=== PATIENT | female | born 1965 ===

== ENCOUNTER 2018-10-18 12:21 | Outpatient (CLI) | payer MEDICARE ==
[2018-10-18 13:15] LABS: Hemoglobin 14.6 gm/dl (10.1-14.3); Mean Corpuscular HGB Conc 35 % (30-34); Mean Corpuscular Volume 82 fl (79-97); Platelet Count 321 K/mm3 (140-440); Red Blood Count 5.13 M/mm3 (3.65-5.03); Red Cell Distribution Width 13.3 % (13.2-15.2)
[2018-10-18 13:23] LABS: Bacteria,Urine 1+ /HPF (Negative); Bilirubin,Urine NEG (Negative); Blood,Urine NEG (Negative); Color,Urine Yellow (Yellow); Mucus,Urine FEW /HPF; Protein,Urine <15 mg/dL mg/dL (Negative); Urobilinogen,Urine < 2.0 mg/dL (<2.0); WBC,Urine < 1.0 /HPF (0.0-6.0)
[2018-10-18 13:26] LABS: Alanine Aminotransferase 38 units/L (7-56); Albumin 4.6 g/dL (3.9-5); BUN/Creatinine Ratio 14; Blood Urea Nitrogen 7 mg/dL (7-17); Calcium 9.7 mg/dL (8.4-10.2); Chol/HDL Ratio 6.21 %; HDL Cholesterol 37 mg/dL (40-59); Hemolysis Index 14; LDL Cholesterol,Direct 187 mg/dL (50-130)
[2018-10-18 13:44] LABS: Creatinine,Urine 108.3 mg/dL (0.1-20.0); Protein/Creatinine Ratio,Urine 0.15
== END 2018-10-18 12:22 | disposition home or self-care (01) ==
LOC: LAB 12:21
PROVIDERS: ATTEND Internal Medicine
DX: E11.22 Type 2 diabetes mellitus with diabetic chronic kidney disease (principal); E78.5 Hyperlipidemia, unspecified; E11.9 Type 2 diabetes mellitus without complications; E87.6 Hypokalemia; N18.9 Chronic kidney disease, unspecified
CPT/HCPCS: 36415; 80053; 80061; 81001; 82306; 82570; 82607; 83036; 83735; 84156; 84443; 85027

== ENCOUNTER 2019-01-02 11:16 | Outpatient (CLI) | payer MEDICARE ==
[2019-01-02 12:13] LABS: Bilirubin,Urine NEG (Negative); Blood,Urine SM (Negative); Color,Urine Yellow (Yellow); Mucus,Urine FEW /HPF; Protein,Urine <15 mg/dL mg/dL (Negative); Urobilinogen,Urine < 2.0 mg/dL (<2.0)
== END 2019-01-02 11:17 | disposition home or self-care (01) ==
LOC: LAB 11:16
PROVIDERS: ATTEND Internal Medicine
DX: N39.0 Urinary tract infection, site not specified (principal)
CPT/HCPCS: 81001; 87076; 87086; 87186; 87591

== ENCOUNTER 2019-01-27 09:14 | Outpatient (CLI) | payer MEDICARE ==
[2019-01-27 10:40] LABS: Hematocrit 44.3 % (30.3-42.9); Hemoglobin 15.2 gm/dl (10.1-14.3); Mean Corpuscular HGB Conc 34 % (30-34); Mean Corpuscular Volume 85 fl (79-97); Platelet Count 338 K/mm3 (140-440); Red Blood Count 5.25 M/mm3 (3.65-5.03); Red Cell Distribution Width 13.9 % (13.2-15.2)
[2019-01-27 10:45] LABS: Bacteria,Urine 1+ /HPF (Negative); Bilirubin,Urine NEG (Negative); Blood,Urine NEG (Negative); Color,Urine Yellow (Yellow); Mucus,Urine FEW /HPF; Protein,Urine <15 mg/dL mg/dL (Negative); Urobilinogen,Urine < 2.0 mg/dL (<2.0)
[2019-01-27 11:06] LABS: BUN/Creatinine Ratio 16; Blood Urea Nitrogen 11 mg/dL (7-17); Calcium 9.7 mg/dL (8.4-10.2); Hemolysis Index 5
[2019-01-27 11:13] LABS: Chol/HDL Ratio 5.08 %
[2019-01-27 11:47] LABS: Creatinine,Urine 146.1 mg/dL (0.1-20.0); Protein/Creatinine Ratio,Urine 0.09
[2019-01-31 13:27] LABS: Vitamin D, 25-OH, D2 <4 ng/mL
== END 2019-01-27 09:15 | disposition home or self-care (01) ==
LOC: LAB 09:14
PROVIDERS: ATTEND Internal Medicine
DX: Z13.21 Encounter for screening for nutritional disorder (principal); E11.65 Type 2 diabetes mellitus with hyperglycemia; E78.5 Hyperlipidemia, unspecified; E11.22 Type 2 diabetes mellitus with diabetic chronic kidney disease; E87.6 Hypokalemia; N18.3 Chronic kidney disease, stage 3 (moderate); R82.998 Other abnormal findings in urine
CPT/HCPCS: 36415; 80048; 80061; 81001; 82306; 82570; 83036; 83735; 84156; 85027; 87086

== ENCOUNTER 2019-09-03 12:51 | Outpatient (CLI) | payer MEDICARE ==
[2019-09-03 13:08] LABS: Bacteria,Urine 1+ /HPF (Negative); Bilirubin,Urine NEG (Negative); Blood,Urine SM (Negative); Color,Urine Yellow (Yellow); Mucus,Urine FEW /HPF; Protein,Urine <15 mg/dL mg/dL (Negative); Urobilinogen,Urine < 2.0 mg/dL (<2.0)
== END 2019-09-03 12:52 | disposition home or self-care (01) ==
LOC: LAB 12:51
PROVIDERS: ATTEND Internal Medicine
DX: N39.0 Urinary tract infection, site not specified (principal); L29.0 Pruritus ani; Z86.19 Personal history of other infectious and parasitic diseases
CPT/HCPCS: 81001; 85007; 87086; 87177

== ENCOUNTER 2019-10-22 09:30 | Outpatient (CLI) | payer MEDICARE ==
--- NOTE | 2019-10-22 10:33 | Ultrasound Report ---
ULTRASOUND RENAL INDICATION: R31.9 HEMATURIA UNSPECIFIED. COMPARISON: No relevant prior imaging study available. FINDINGS: RIGHT KIDNEY: Size: 10.9 x 5.1 cm. Echogenicity: Normal. Cortical thickness: Normal, 1.6 cm. Hydronephrosis: None. Cyst or mass: None. Stones: None. LEFT KIDNEY: Size: 12.1 x 4.9 cm. Echogenicity: Normal. Cortical thickness: Normal, 1.9 cm. Hydronephrosis: None. Cyst or mass: None. Stones: None. Urinary Bladder: No significant abnormality. Free Fluid: None. Additional Findings: Hepatic steatosis is noted. IMPRESSION 1. No acute sonographic abnormality of the kidneys. 2. Hepatic steatosis. Signer Name: Ketan Bull MD Signed: 10/22/2019 10:29 AM Workstation Name: [id number]
== END 2019-10-22 09:31 | disposition home or self-care (01) ==
LOC: US 09:30
PROVIDERS: ATTEND Internal Medicine
DX: K76.0 Fatty (change of) liver, not elsewhere classified (principal); R31.9 Hematuria, unspecified
CPT/HCPCS: 76770

== ENCOUNTER 2019-11-13 08:50 | Outpatient (CLI) | payer MEDICARE ==
[2019-11-13 09:45] LABS: Chol/HDL Ratio 4.79 %
[2019-11-13 10:53] LABS: Creatinine,Urine 290.6 mg/dL (0.1-20.0); Microalbumin/Creatinine Ratio 4.4 ug/mg
== END 2019-11-13 08:51 | disposition home or self-care (01) ==
LOC: LAB 08:50
PROVIDERS: ATTEND Internal Medicine
DX: E11.9 Type 2 diabetes mellitus without complications (principal); E78.5 Hyperlipidemia, unspecified
CPT/HCPCS: 36415; 80061; 82043; 83036

== ENCOUNTER 2020-04-16 07:01 | Day surgery (SDC) | payer MEDICARE ==
[2020-04-16] MEDS ORDERED: SODIUM CHLORIDE 0.9% 1000 ML 1,000 ML IV SCH (07:30)
--- NOTE | 2020-04-16 07:58 | Anesthesia Consultation ---
Anesthesia Consult and Med Hx Date of service: 04/16/20 - Airway Anesthetic Teeth Evaluation: Good, Bridges (permanent front upper) ROM Head & Neck: Adequate Mental/Hyoid Distance: Adequate Mallampati Class: Class I Intubation Access Assessment: Probably Good - Pre-Operative Health Status ASA Pre-Surgery Classification: ASA2 Proposed Anesthetic Plan: MAC - Cardiovascular System Hx Hypertension: Yes - Gastrointestinal Hx Gastroesophageal Reflux Disease: Yes - Endocrine Hx Non-Insulin Dependent Diabetes: Yes
--- NOTE | 2020-04-16 07:58 | Anesthesia Day of Surgery ---
Anesthesia Day of Surgery - Day of Surgery Patient Examined: Yes Patient H&P Reviewed: Yes Patient is NPO: Yes
[2020-04-16] MEDS ORDERED: WATER FOR IRRIG STERILE 250 ML BOTTLE IR ONE (09:05)
[2020-04-16] MEDS ORDERED: WATER FOR IRRIG STERILE 1,000 ML BOTTLE ONE (09:05)
[2020-04-16] MEDS ORDERED: propofoL 200 MG/20 ML VIAL IV ONE ×2 (09:07)
--- NOTE | 2020-04-16 09:47 | Procedure Note ---
Date of procedure: 04/16/20 Pre-op diagnosis: GERD/ Colon Polyp Screening Post-op diagnosis: other (Mild,Rose Marie Esophagitis/ Gastritis/ Mild to Moderate, Distal Erosive Esophagitis/ Mild Gastroparesis/ Possible,Ileocecal Lipoma/Mild to Moderate Diverticular Disease/Minor,Internal Hemorrhoid) Procedure: EGD with Biopsy/ Colonoscopy with Biopsy Anest[place]: [facility] [place] [facility] [place]geon: [place] SWEENEY Estimated blood loss: minimal Pathology: list Specimen disposition: to lab Condition: stable Disposition: same day (Avoid aspirin and NSAID and anticoagulants for 5 days; otherwise resume home medication. Treat with PPI,Fluconazole and encourage fiber intake and follow up in 1 to 2 weeks ([phone]).)
--- NOTE | 2020-04-16 10:33 | Operative Report ---
PROCEDURE: Esophagogastroduodenoscopy with biopsy. INDICATIONS: This is a 55-year-old female with an underlying history of hypertension and hyperlipidemia, who has been having GERD symptoms. EGD was done to assess for the GERD symptoms. DESCRIPTION OF PROCEDURE: The procedure was done after getting informed consent with MAC anesthesia. Instrument was passed through the hypopharynx into the esophagus, which showed mild to moderate distal erosive esophagitis and also in the mid esophagus, some evidence of whitish plaques suggestive of mild Rose Marie esophagitis. Biopsy was done from the distal esophagus. Additional biopsy was also done from the mid esophagus to assess for the Rose Marie esophagitis. There was some mild gastroparesis noted. The stomach showed antral gastritis. Biopsy was done from the gastric antrum, gastric body and angular incisura to rule out for H. pylori. The pylorus was patent. The duodenum in the first and second portion appeared normal. ASSESSMENT: Gastroesophageal reflux disease symptoms, mild to moderate erosive esophagitis, mild Rose Marie esophagitis, gastritis, and mild gastroparesis. There was minimal bleeding associated with the procedure because of the biopsies. PLAN: To treat the patient with PPI as well as fluconazole. Have the patient follow up in the office in 1-2 weeks' time. A colonoscopy is also to be done as part of colon polyp screening. The procedure was done in the GI lab with assistance of the GI lab team, which included Bhumi ARZOLA as well as Ze vazquez and with assistance of anesthesia. [facility]# [id number] PATRIC/MOHAMUD
[2020-04-16 10:35] VITALS: BP 160/80
--- NOTE | 2020-04-16 13:57 | Operative Report ---
PROCEDURE: Colonoscopy. INDICATIONS: This is a 55-year-old female with an underlying history of diabetes mellitus and hypertension, who had an EGD done prior to the colonoscopy. EGD showed presence of mild Rose Marie esophagitis, mild to moderate erosive esophagitis, mild gastroparesis and gastritis, but no peptic ulcer disease. Colonoscopy was done to assess for any colon polyp as part of colon polyp screening. DESCRIPTION OF PROCEDURE: Initial rectal exam was unremarkable. Instrument was passed through the rectum onto the cecum, which was identified by the ileocecal valve and the appendiceal orifice. Visualization was fair. There was what appeared like a lipoma on the ileocecal valve, which was biopsied. The remaining part of the cecum, ascending colon and most of the transverse colon showed normal mucosa. There were a few mild to moderate diverticula noted in the distal transverse as well as in the left colon and the rectum showed some minor internal hemorrhoid. There was minimal bleeding associated with the procedure. No complications associated with the procedure. 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 There was minimal bleeding associated with the procedure. No complications associated with the procedure. PLAN: To encourage the patient to take fiber supplements, avoid aspirin and aspirin-related products. The patient will be placed on fluconazole and PPI because of the EGD findings of mild Rose Marie esophagitis and mild to moderate erosive esophagitis and the patient will be asked to follow up in the office in 1-2 weeks' time. The procedure was done in the GI lab with assistance of the GI lab team, which included Bhumi ARZOLA ____; Lonnie vazquez and with assistance of anesthesia. Thank you for the kind referral. JOB# [id number] PATRIC/MOHAMUD
--- NOTE | 2020-04-16 13:58 | Post Anesthesia Evaluation ---
- Post Anesthesia Evaluation Patient Participated: Yes Airway Patent: Yes Stable Respiratory Function: Yes Nausea/Vomiting: No Temp > 96.8F: Yes Pain Manageable: Yes Adequeate Hydration: Yes Anesthesia Complications: No
== END 2020-04-16 07:02 | disposition home or self-care (01) ==
LOC: GIO 07:01
DX: Z12.11 Encounter for screening for malignant neoplasm of colon (principal); K57.30 Diverticulosis of large intestine without perforation or abscess without bleeding; K64.8 Other hemorrhoids; K21.0 Gastro-esophageal reflux disease with esophagitis; E11.9 Type 2 diabetes mellitus without complications; K31.84 Gastroparesis; I10 Essential (primary) hypertension; K63.89 Other specified diseases of intestine; K31.89 Other diseases of stomach and duodenum; F17.210 Nicotine dependence, cigarettes, uncomplicated; Z79.899 Other long term (current) drug therapy; Z90.49 Acquired absence of other specified parts of digestive tract; Z90.710 Acquired absence of both cervix and uterus
CPT/HCPCS: 43239; 45380; 82962; 88304; 88305; 88342; J2704; J7030

== ENCOUNTER 2020-05-06 08:13 | Outpatient (CLI) | payer MEDICARE ==
--- NOTE | 2020-05-06 09:33 | Ultrasound Report ---
ULTRASOUND THYROID INDICATION / CLINICAL INFORMATION: THYROTOXICOSIS UNSPECIFIED W/O THROTOXIC CRISIS OR STORM. COMPARISON: None available. FINDINGS: RIGHT LOBE: Size = 3.5 x 1.6 x 1.4 cm. - Echogenicity: Normal. - Vascularity: Normal. - Nodules < 1 cm: None. - Nodules >= 1 cm or Suspicious Nodules: None. LEFT LOBE: Size = 3.7 x 1.3 x 1.3 cm. - Echogenicity: Normal. - Vascularity: Normal. - Nodules < 1 cm: None. - Nodules >= 1 cm or Suspicious Nodules: A 1.2 x 0.9 x 0.7 cm solid nodule is identified near the sup erior pole. - NODULE # 1 -- Location: left upper -- Size: 1.2 cm -- Composition: Solid = 2 points -- Echogenicity: Hypoechoic = 2 points -- Shape: [id number] = 0 points -- Margin: Smooth = 0 points -- Echogenic Foci: None = 0 points -- Additional Findings: None. -- ACR TI-RADS Score = 4. -- ACR TI-RADS Category = TR-4 (4-6 points). ISTHMUS: No significant abnormality. Thickness = 0.4 cm. - Nodules < 1 cm: None. - Nodules >= 1 cm or Suspicious Nodules: None. LYMPH NODES: No abnormal lymph nodes. PARATHYROID GLANDS: No abnormal parathyroid gland. ADDITIONAL FINDINGS: None. IMPRESSION: Left thyroid nodule as described. Note: Nodule size based on mean (average) size of 3 dimensions. Note: Nodules < 1 cm do not typically require follow-up or FNA unless there are suspicious features ( SILVIA, 2015) ACR TI-RADS Thyroid Nodule Recommendations TI-RADS 1 (0 points) -- Benign. No FNA or follow-up. TI-RADS 2 (1-2 points) -- Not suspicious. No FNA or follow-up. TI-RADS 3 (3 points) -- Mildly suspicious. Follow up in 1 year if 1.5 cm. FNA if 2.5 cm. TI-RADS 4 (4-6 points) -- Moderately suspicious. Follow up in 1 year if 1.0 cm. FNA if 1.5 cm. TI-RADS 5 (7+ points) -- Highly suspicious. Follow up in 1 year if 0.5 cm. FNA if 1.0 cm. Signer Name: Sebastian Rosas Jr, MD Signed: 05/06/2020 9:29 AM Workstation Name: [id number]
== END 2020-05-06 08:14 | disposition home or self-care (01) ==
LOC: US 08:13
PROVIDERS: ATTEND Internal Medicine
DX: E04.1 Nontoxic single thyroid nodule (principal); E05.90 Thyrotoxicosis, unspecified without thyrotoxic crisis or storm
CPT/HCPCS: 76536

== ENCOUNTER 2021-01-14 09:02 | Outpatient (CLI) | payer MEDICARE ==
[2021-01-14 09:47] LABS: Chol/HDL Ratio 3.08 %
== END 2021-01-14 09:03 | disposition home or self-care (01) ==
LOC: LAB 09:02
PROVIDERS: ATTEND Internal Medicine
DX: E11.65 Type 2 diabetes mellitus with hyperglycemia (principal); E78.5 Hyperlipidemia, unspecified; E05.90 Thyrotoxicosis, unspecified without thyrotoxic crisis or storm
CPT/HCPCS: 36415; 80061; 83036; 84443